=== PATIENT | male | born 1990 | race Caucasian/White ===

== ENCOUNTER 2020-05-13 12:50 | Emergency (ER) | payer MEDICAID ==
[~2020-05-13] VITALS: Ht 185 cm; Wt 64.0 kg
[~2020-05-13 12:50] MED LIST: CYCL10TA9 PO; MPR22T TOP; NAPR-243 PO; SULF1TAB38 PO
[2020-05-13 13:25] VITALS: BP 111/73
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
[2020-05-13] MEDS ORDERED: BSS 15 ML IR ONE (13:45)
[2020-05-13] MEDS ORDERED: FLUORESCEIN (FLUOR-I-STRIPS) 1 MG STRP OU ONE (13:45)
[2020-05-13] MEDS ORDERED: TETRACAINE 0.5% OPHTH SOLN 4 ML BTL (SINGLE DOSE ONLY) OP ONE (13:45)
[2020-05-13] MEDS ORDERED: ERYT1OIN6 OP (13:49)
[2020-05-13] MEDS ORDERED: HYDR-3870 PO (13:49)
--- NOTE | 2020-05-13 13:50 | ED EENT ---
History of Present Illness General Chief Complaint: Eye Problems Stated Complaint: SOMETHING IN R EYE Nursing Triage Note: c/o R eye pain after unloading scrap metal yesterday Source: patient Exam Limitations: no limitations History of Present Illness Date Seen by Provider: May 13, 2020 Time Seen by Provider: 13:46 Initial Comments Unloading scrap metal yesterday out of the back of his truck and got something in his right eye. He has been irrigating it at home he states. Timing/Duration: abrupt Severity: moderate Location: eye (R) Associated Symptoms: denies symptoms Allergies and Home Medications Allergies Coded Allergies: No Known Drug Allergies (Unverified , 12/01/13) Home Medications Cyclobenzaprine Hcl 10 Mg Tablet, 1 EACH PO Q8H PRN for SPASMS Prescribed by: CELESTINO CORRAL on 01/02/152244 Naproxen 500 Mg Tablet, 1 EACH PO TID PRN for PAIN FOR PAIN Prescribed by: CELESTINO CORRAL on 01/02/152244 Patient Home Medication List Home Medication List Reviewed: Yes Review of Systems Review of Systems Constitutional: see HPI Eyes: See HPI, Foreign Body Sensation Ears: No Symptoms Reported Nose: no symptoms reported Mouth: no symptoms reported Throat: no symptoms reported Respiratory: no symptoms reported Cardiovascular: no symptoms reported Musculoskeletal: no symptoms reported Past Vgomchw-Dyhqiy-Ygawrw Hx Patient Social History Alcohol Use: Denies Use Recreational Drug Use: No Smoking Status: Current Everyday Smoker Type Used: Cigarettes Recent Foreign Travel: No Contact w/Someone Who Travel: No Recent Infectious Disease Expo: No Immunizations Up To Date Tetanus Booster (TDap): Less than 5yrs Seasonal Allergies Seasonal Allergies: No Past Medical History Surgeries: Yes (EAR TUBES) Tonsillectomy Respiratory: No Cardiac: Yes Cardiomyopathy Neurological: No Gastrointestinal: No Musculoskeletal: No Endocrine: No Cancer: No Psychosocial: No Integumentary: No Blood Disorders: No Adverse Reaction/Blood Tranf: No Family Medical History No Pertinent Family Hx Physical Exam Vital Signs Vital Signs - First Documented 05/13/20 13:25 Temp 37.0 Pulse 67 Resp 18 B/P (MAP) 111/73 (86) Pulse Ox 100 Height, Weight, BMI Height: 6'1" Weight: 140lbs. oz. 63.376492up; 18.00 BMI Method:Stated General Appearance: WD/WN, no apparent distress Eyes: right eye other (conjunctival inflammation on the right, upon staining w ith fluorescein there is an area of dye uptake consistent with corneal abrasion about the 5:00 position near the limbus. No foreign body seen); bilateral eye PERRL, bilateral eye EOMI Neck: non-tender, full range of motion Respiratory: normal breath sounds, no respiratory distress, no accessory muscle use Neurologic/Psychiatric: alert, normal mood/affect, oriented x 3 Skin: normal color Progress/Results/Core Measures Results/Orders My Orders Orders - BETTY GRIFFITHS APRN Tetracaine 0.5% Ophth Zelda Sdv (Tetracai (05/13/20 13:45) Fluorescein Strips (Qcvje-N-Dsgxyz) (05/13/20 13:45) Balanced Salt Irrigation Soln (Bss Irrig (05/13/20 13:45) Medications Given in ED Current Medications Medications Dose Ordered Sig/Gretta Route Start Time Stop Time Status Last Admin Dose Admin Balanced Salt Solution 15 ml ONCE ONCE IR 05/13/20 13:45 05/13/20 13:46 05/13/20 13:43 15 ML Fluorescein Sodium 1 mg ONCE ONCE OU 05/13/20 13:45 05/13/20 13:46 05/13/20 13:43 1 MG Tetracaine HCl 1 OR 2 DROPS INTO AFFEC... ONCE ONCE OP 05/13/20 13:45 05/13/20 13:46 05/13/20 13:43 1 ML Vital Signs/I&O 05/13/20 13:25 Temp 37.0 Pulse 67 Resp 18 B/P (MAP) 111/73 (86) Pulse Ox 100 Blood Pressure Mean: 86 Departure Impression Primary Impression: Corneal abrasion Qualified Codes: S05.01XA - Injury of conjunctiva and corneal abrasion without foreign body, right eye, initial encounter Disposition: HOME, SELF-CARE Condition: Stable Departure-Patient Inst. Decision time for Depature: 13:47 Referrals: [facility] (PCP/Family) Primary Care Physician Patient Instructions: Corneal Abrasion Add. Discharge Instructions: In front of a mirror , pull down your lower eyelid and squirt about a half an inch of the antibiotic ointment just inside the lower eyelid 3 times a day for the next 3 days. Return to ER for any concerns. All discharge instructions reviewed with patient and/or family. Voiced understanding. Scripts Erythromycin Base (Erythromycin Opthalmic Ointment) 1 Gm Oint...g. 0 OP Q8H for 3 Days, #1 TUBE 1/2 inch Prov: BETTY GRIFFITHS APRN 05/13/20 BETTY GRIFFITHS APRN May 13, 2020 13:50
== END 2020-05-13 13:53 | disposition home or self-care (01) ==
LOC: EDUNIT# 12:50 → ER 12:52
DX: S05.01XA Injury of conjunctiva and corneal abrasion without foreign body, right eye, initial encounter (principal); F17.210 Nicotine dependence, cigarettes, uncomplicated; X58.XXXA Exposure to other specified factors, initial encounter
CPT/HCPCS: 99282

== ENCOUNTER 2021-03-29 20:47 | Emergency (ER) | payer SELFPAY ==
[~2021-03-29] VITALS: Ht 185 cm; Wt 72.0 kg
[~2021-03-29 20:47] MED LIST changes: +ERYT1OIN6 OP; +HYDR-3870 PO
[2021-03-29] MEDS ORDERED: morphine INJ 10 MG/ML 1ML (SYR OR VIAL) IVP STA (20:52)
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
[2021-03-29] MEDS ORDERED: TETANUS,DIPTH,PERTUSS P/F (BOOSTRIX) 0.5 ML VIAL IM ONE (21:00)
--- NOTE | 2021-03-29 21:30 | Diagnostic Imaging Report ---
EXAMINATION: Left shoulder 2 or more views. HISTORY: Pain after fall. COMPARISON: None available. FINDINGS: There is a displaced midshaft left clavicle fracture with comminution. Glenohumeral joint and acromioclavicular joint are normal. IMPRESSION: Displaced and comminuted left midshaft clavicle fracture. Dictated by: Dictated on workstation # [id number]
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
[2021-03-29] MEDS ORDERED: ACHD5005 PO (21:38)
[2021-03-29 21:50] VITALS: BP 137/87
== END 2021-03-29 21:51 | disposition home or self-care (01) ==
LOC: ER 20:48
DX: S42.022A Displaced fracture of shaft of left clavicle, initial encounter for closed fracture (principal); S01.91XA Laceration without foreign body of unspecified part of head, initial encounter; R40.2413 Glasgow coma scale score 13-15, at hospital admission; V19.9XXA Pedal cyclist (driver) (passenger) injured in unspecified traffic accident, initial encounter
CPT/HCPCS: 70450; 72125; 73030; 90715

== ENCOUNTER 2021-04-02 12:05 | Emergency (ER) | payer SELFPAY ==
[~2021-04-02] VITALS: Ht 188 cm; Wt 65.0 kg
[~2021-04-02 12:05] MED LIST changes: +ACHD5005 PO
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
[2021-04-02] MEDS ORDERED: BISACODYL 10 MG SUPP (DULCOLAX) PR ONE (13:30)
[2021-04-02] MEDS ORDERED: GLYCERIN ADULT SUPPOSITORY PR ONE (13:30)
[2021-04-02] MEDS ORDERED: NS IV 1000 ML 1,000 ML IV ONE (14:00)
[2021-04-02] MEDS ORDERED: fentaNYL INJ 100 MCG/2 ML AMP IVP STA (14:06)
[2021-04-02] MEDS ORDERED: HOLD METFORMIN - RECEIVED CONTRAST 20 ML VIAL IV SCH (14:30)
[2021-04-02] MEDS ORDERED: IOHEXOL 350 MG/ML 100 ML (OMNIPAQUE 350) VIAL IV ONE (14:30)
[2021-04-02] MEDS ORDERED: NS 100 ML (IVPB) BAG IV ONE (14:30)
[2021-04-02] MEDS ORDERED: CATHETER FLUSH 10 ML SYR IV PRN (14:30)
[2021-04-02 14:41] LABS: BASOPHILS # (AUTO) 0.1 10^3/uL (0.0-0.1); BASOPHILS % (AUTO) 1 % (0-10); EOSINOPHILS # (AUTO) 0.2 10^3/uL (0.0-0.3); EOSINOPHILS % (AUTO) 2 % (0-10); HEMATOCRIT 48 % (40-54); HEMOGLOBIN 15.9 g/dL (13.3-17.7); LYMPHOCYTES # (AUTO) 1.8 10^3/uL (1.0-4.0); LYMPHOCYTES % (AUTO) 19 % (12-44); MEAN CORPUSCULAR HEMOGLOBIN 31 pg (25-34); MEAN CORPUSCULAR HGB CONC 33 g/dL (32-36); MEAN CORPUSCULAR VOLUME 92 fL (80-99); MEAN PLATELET VOLUME 8.9 fL (9.0-12.2); MONOCYTES # (AUTO) 0.8 10^3/uL (0.0-1.0); MONOCYTES % (AUTO) 8 % (0-12); NEUTROPHILS # (AUTO) 6.9 10^3/uL (1.8-7.8); NEUTROPHILS % (AUTO) 71 % (42-75); PLATELET COUNT 274 10^3/uL (130-400); WHITE BLOOD COUNT 9.8 10^3/uL (4.3-11.0)
[2021-04-02 14:56] LABS: ALBUMIN 3.7 GM/DL (3.2-4.5); CHLORIDE 105 MMOL/L (98-107); SODIUM 141 MMOL/L (135-145)
[2021-04-02 14:57] LABS: CALCIUM 8.9 MG/DL (8.5-10.1)
[2021-04-02 14:58] LABS: GLUCOSE 88 MG/DL (70-105); TOTAL PROTEIN 6.4 GM/DL (6.4-8.2)
[2021-04-02 14:59] LABS: CARBON DIOXIDE 25 MMOL/L (21-32)
[2021-04-02 15:00] LABS: BILIRUBIN,TOTAL 0.4 MG/DL (0.1-1.0)
[2021-04-02 15:01] LABS: ALKALINE PHOSPHATASE 83 U/L (40-136)
[2021-04-02 15:02] LABS: CREATININE SERUM 0.79 MG/DL (0.60-1.30); GFR ESTIMATED > 60
[2021-04-02 15:03] LABS: BUN/CREATININE RATIO 11
[2021-04-02 15:05] LABS: ALANINE AMINOTRANSFERASE 14 U/L (0-55)
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
[2021-04-02 16:05] VITALS: BP 144/102
== END 2021-04-02 16:05 | disposition home or self-care (01) ==
LOC: EDUNIT# 12:05 → ER 12:07
DX: S40.212A Abrasion of left shoulder, initial encounter (principal); R10.30 Lower abdominal pain, unspecified; K59.00 Constipation, unspecified; F17.210 Nicotine dependence, cigarettes, uncomplicated; V29.9XXA Motorcycle rider (driver) (passenger) injured in unspecified traffic accident, initial encounter
CPT/HCPCS: 36415; 74177; 80053; 85025

== ENCOUNTER 2022-04-12 21:03 | Observation (INO) | payer SELFPAY ==
[~2022-04-12] VITALS: Ht 185.5 cm; Wt 63.6 kg
[2022-04-12] MEDS ORDERED: NS IV 1000 ML 1,000 ML ONE (22:02)
--- NOTE | 2022-04-12 22:09 | ED Psychosocial ---
General Chief Complaint: Psych/Social Disorder Stated Complaint: FALLS/SYNCOPE/VISION ISSUES History of Present Illness Date Seen by Provider: Apr 12, 2022 Time Seen by Provider: 22:00 Initial Comments Patient is a 31-year-old male who presents to the emergency department today, brought here by his mother for chief complaint of multiple falls, agitated, jittery, responding to internal stimuli. He states that he has been walking all day. He is incoherent as far as details of his day. Tends to ramble. Appears to be intoxicated on methamphetamine. Glassy eyed. Denies pain currently. Is not nauseous, is not short of breath. Difficult to get a history from secondary to his clinical condition. States that he is not on any daily medications. States that the last time he ate was breakfast, "biscuits and gravy". Tells me that he has not done any drugs today. Extremely difficult to get HPI, review of systems, past medical family or social history secondary to his apparent intoxication. Noted to be tachycardic in the 120s. Timing/Duration: other (unknown) Severity: severe Associated Symptoms: anxiety, impaired concentration Allergies and Home Medications Allergies Coded Allergies: No Known Drug Allergies (Unverified , 12/01/13) Patient Home Medication List Home Medication List Reviewed: Yes No Active Prescriptions or Reported Meds Review of Systems Constitutional: see HPI EENTM: no symptoms reported Respiratory: no symptoms reported Cardiovascular: no symptoms reported Gastrointestinal: no symptoms reported Genitourinary: no symptoms reported Musculoskeletal: no symptoms reported Skin: no symptoms reported Psychiatric/Neurological: Anxiety, Paresthesia All Other Systems Reviewed Negative Unless Noted: Yes Past Ddivnbd-Rbncei-Kictzs Hx Immunizations Up To Date Tetanus Booster (TDap): Less than 5yrs Seasonal Allergies Seasonal Allergies: No Past Medical History Surgeries: Yes (EAR TUBES) Tonsillectomy Respiratory: No Cardiac: Yes Cardiomyopathy Neurological: No Gastrointestinal: No Musculoskeletal: Yes Fractures Endocrine: No Cancer: No Psychosocial: No Integumentary: No Blood Disorders: No Adverse Reaction/Blood Tranf: No Family Medical History No Pertinent Family Hx Physical Exam Vital Signs - First Documented 04/12/22 04/14/22 21:40 13:37 Temp 36.1 Pulse 95 Resp 20 B/P (MAP) 102/75 (84) Pulse Ox 100 O2 Delivery Room Air O2 Flow Rate 0.00 Capillary Refill : Height, Weight, BMI Height: 6'1" Weight: 140lbs. oz. 63.344702vb; 18.00 BMI Method:Stated General Appearance: no apparent distress, thin HEENT: PERRL/EOMI, other (dry oral mucosa) Neck: full range of motion Respiratory: lungs clear, normal breath sounds, no respiratory distress, no accessory muscle use Cardiovascular: regular rate, rhythm (120's) Gastrointestinal: normal bowel sounds, non tender, soft Extremities: normal range of motion, normal inspection Neurologic/Psychiatric: alert Appearance/Memory: appropriate appearance, denies illness, impaired insight Behavior/Eye Contact: avoids eye contact, increased rate of speech Thoughts/Hallucinations: flight of ideas, paranoid, other (agitated; responding to external stimuli) Skin: normal color, warm/dry, other (scattered abrasions) Progress/Results/Core Measures Results/Orders Lab Results Laboratory Tests Test 04/14/22 05:34 Range/Units White Blood Count 7.1 4.3-11.0 10^3/uL Red Blood Count 4.59 4.30-5.52 10^6/uL Hemoglobin 14.1 13.3-17.7 g/dL Hematocrit 42 40-54 % Mean Corpuscular Volume 91 80-99 fL Mean Corpuscular Hemoglobin 31 25-34 pg Mean Corpuscular Hemoglobin Concent 34 32-36 g/dL Red Cell Distribution Width 13.0 10.0-14.5 % Platelet Count 188 130-400 10^3/uL Mean Platelet Volume 10.4 9.0-12.2 fL Immature Granulocyte % (Auto) 0 % Neutrophils (%) (Auto) 38 L 42-75 % Lymphocytes (%) (Auto) 48 H 12-44 % Monocytes (%) (Auto) 7 0-12 % Eosinophils (%) (Auto) 6 0-10 % Basophils (%) (Auto) 1 0-10 % Neutrophils # (Auto) 2.7 1.8-7.8 10^3/uL Lymphocytes # (Auto) 3.4 1.0-4.0 10^3/uL Monocytes # (Auto) 0.5 0.0-1.0 10^3/uL Eosinophils # (Auto) 0.4 H 0.0-0.3 10^3/uL Basophils # (Auto) 0.1 0.0-0.1 10^3/uL Immature Granulocyte # (Auto) 0.0 0.0-0.1 10^3/uL Sodium Level 140 135-145 MMOL/L Potassium Level 4.1 3.6-5.0 MMOL/L Chloride Level 107 98-107 MMOL/L Carbon Dioxide Level 25 21-32 MMOL/L Anion Gap 8 5-14 MMOL/L Blood Urea Nitrogen 25 H 7-18 MG/DL Creatinine 1.07 0.60-1.30 MG/DL Estimat Glomerular Filtration Rate 96 BUN/Creatinine Ratio 23 Glucose Level 93 70-105 MG/DL Calcium Level 8.4 L 8.5-10.1 MG/DL Corrected Calcium 9.0 8.5-10.1 MG/DL Total Bilirubin 0.4 0.1-1.0 MG/DL Aspartate Amino Transf (AST/SGOT) 20 5-34 U/L Alanine Aminotransferase (ALT/SGPT) 28 0-55 U/L Alkaline Phosphatase 75 40-136 U/L Total Protein 5.6 L 6.4-8.2 GM/DL Albumin 3.3 3.2-4.5 GM/DL My Orders Medications Given in ED Vital Signs/I&O Progress Progress Note #1: Time: 01:47 Progress Note Patient noted to be extremely dehydrated, very dry oral mucosa. acute renal failure likely secondary to his dehydration. Fluid resuscitated with 3 L of normal saline. Case is discussed with Dr. Watts at 0104. She recommends continuing hydration, repeat labs at 4:30 AM and she will reassess. She is not willing to accept him for admission at this time. He is resting quietly after having had some Zyprexa p.o. Fluids currently running normal saline 150 cc/h. He is positive for methamphetamine on his urine drug screen. He technically has mild rhabdo with an increased total CK as well as blood in his urine. Dispo pending reevaluation at 4:30 AM. Progress Note #2: Time: 05:[address] Watts accepting for obs admission to Medical floor. que'd orders per her. Departure Communication (Admissions) Time/Spoke to Admitting Phy: 05:55 Dr Watts Impression Primary Impression: Renal failure, acute Qualified Codes: N17.9 - Acute kidney failure, unspecified Additional Impressions: Dehydration, severe Rhabdomyolysis Qualified Codes: M62.82 - Rhabdomyolysis Methamphetamine intoxication Disposition: ADMITTED INPATIENT Condition: Stable Admissions Decision to Admit Reason: Admit from ER (General) Decision to Admit/Date: Apr 13, 2022 Time/Decision to Admit Time: 05:55 Departure-Patient Inst. Referrals: [facility] (PCP/Family) Primary Care Physician Scripts No Active Prescriptions or Reported Meds MEI ZALDIVAR MD Apr 12, 2022 22:09
[2022-04-12] MEDS ORDERED: OLANZapine 5 MG ODT (ZyPREXA ZYDIS) PO ONE (22:15)
[2022-04-12] MEDS ORDERED: NS IV 1000 ML 1,000 ML IV SCH (22:15)
[2022-04-12 22:20] LABS: ALBUMIN 5.6 GM/DL (3.2-4.5); CHLORIDE 102 MMOL/L (98-107); SODIUM 144 MMOL/L (135-145)
[2022-04-12 22:21] LABS: CALCIUM 11.1 MG/DL (8.5-10.1)
[2022-04-12 22:22] LABS: GLUCOSE 113 MG/DL (70-105)
[2022-04-12 22:23] LABS: TOTAL PROTEIN 9.4 GM/DL (6.4-8.2)
[2022-04-12 22:24] LABS: BILIRUBIN,TOTAL 1.4 MG/DL (0.1-1.0); CARBON DIOXIDE 22 MMOL/L (21-32)
[2022-04-12 22:26] LABS: ALKALINE PHOSPHATASE 109 U/L (40-136); CREATININE SERUM 3.87 MG/DL (0.60-1.30); GFR ESTIMATED 20
[2022-04-12 22:27] LABS: BASOPHILS # (AUTO) 0.1 10^3/uL (0.0-0.1); BASOPHILS % (AUTO) 0 % (0-10); BUN/CREATININE RATIO 9; EOSINOPHILS % (AUTO) 0 % (0-10); HEMATOCRIT 52 % (40-54); LYMPHOCYTES % (AUTO) 10 % (12-44); MEAN CORPUSCULAR HEMOGLOBIN 30 pg (25-34); MEAN CORPUSCULAR HGB CONC 35 g/dL (32-36); MEAN CORPUSCULAR VOLUME 87 fL (80-99); MEAN PLATELET VOLUME 9.5 fL (9.0-12.2); MONOCYTES # (AUTO) 1.6 10^3/uL (0.0-1.0); MONOCYTES % (AUTO) 8 % (0-12); NEUTROPHILS # (AUTO) 16.6 10^3/uL (1.8-7.8); NEUTROPHILS % (AUTO) 81 % (42-75); PLATELET COUNT 313 10^3/uL (130-400); WHITE BLOOD COUNT 20.4 10^3/uL (4.3-11.0)
[2022-04-12 22:29] LABS: ALANINE AMINOTRANSFERASE 67 U/L (0-55); CREATINE KINASE 385 U/L (30-200)
[2022-04-12 23:07] LABS: LYMPHOCYTES % (MANUAL) 12 %; MONOCYTES % (MANUAL) 5 %; NEUTROPHILS % (MANUAL) 83 %
[2022-04-13] MEDS: NS IV 1000 ML 1,000 ML IV SCH ×7 (00:10→22:36)
[2022-04-13 01:20] LABS: BILIRUBIN,URINE NEGATIVE (NEGATIVE); CLARITY,URINE SL CLOUDY; COLOR,URINE YELLOW; GLUCOSE, URINE (UA) NEGATIVE (NEGATIVE); KETONES,URINE NEGATIVE (NEGATIVE); LEUKOCYTE ESTERASE ,URINE NEGATIVE (NEGATIVE); NITRITE,URINE NEGATIVE (NEGATIVE); PH,URINE 5.5 (5-9); PROTEIN,URINE 2+ (NEGATIVE)
[2022-04-13 01:30] LABS: BACTERIA,URINE NEGATIVE /HPF; SQUAMOUS EPITHELIAL CELL,UR 0-2 /HPF
[2022-04-13 01:41] LABS: AMPHETAMINE SCREEN, URINE POSITIVE (NEGATIVE); BARBITURATE SCREEN URINE NEGATIVE (NEGATIVE); BENZODIAZEPINES SCREEN URINE NEGATIVE (NEGATIVE); CANNABINOID SCREEN, URINE NEGATIVE (NEGATIVE); COCAINE SCREEN URINE NEGATIVE (NEGATIVE); METHADONE STAT NEGATIVE (NEGATIVE); OPIATE SCREEN URINE NEGATIVE (NEGATIVE); OXYCODONE STAT NEGATIVE (NEGATIVE); PROPOXYPHENE STAT NEGATIVE (NEGATIVE); TRICYCLIC ANTIDEPRESSANTS SCRE NEGATIVE (NEGATIVE)
[2022-04-13 04:45] LABS: POTASSIUM 4.4 MMOL/L (3.6-5.0)
[2022-04-13 04:46] LABS: CALCIUM 8.4 MG/DL (8.5-10.1)
[2022-04-13 04:50] LABS: CREATININE SERUM 2.08 MG/DL (0.60-1.30)
[2022-04-13] MEDS ORDERED: ANTACID SUSP 30 ML UDC (MYLANTA) PO PRN (08:45)
[2022-04-13] MEDS ORDERED: CALCIUM CARBONATE 500 MG (TUMS) TAB.CHEW PO PRN (08:45)
[2022-04-13] MEDS ORDERED: polyethylene glycoL POWDER 17 GM (MIRALAX) PACK PO PRN (08:45)
[2022-04-13] MEDS ORDERED: MELATONIN 3 MG TABLET PO PRN (08:45)
[2022-04-13] MEDS ORDERED: MILK OF MAGNESIA 400 MG/5 ML 30 ML UDC PO PRN (08:45)
[2022-04-13] MEDS ORDERED: ONDANSETRON 4 MG (ZOFRAN) ORAL DISSOLVE TAB PO PRN (08:45)
[2022-04-13] MEDS ORDERED: OLANZapine 5 MG ODT (ZyPREXA ZYDIS) PO PRN (08:45)
[2022-04-13] MEDS ORDERED: BISACODYL 10 MG SUPP (DULCOLAX) PR PRN (08:45)
[2022-04-13] MEDS ORDERED: ONDANSETRON 4 MG/2 ML (SDV) Z0FRAN IV PRN (08:45)
[2022-04-13] MEDS ORDERED: diphenhydrAMINE 25 MG TAB (BENADRYL) PO PRN (08:45)
[2022-04-13] MEDS ORDERED: LACTULOSE SYRUP 10GM/15ML (ENULOSE) 30ML UDC PO PRN (08:45)
[2022-04-13] MEDS ORDERED: HYDROmorphone 2 MG/ML VIAL (DILAUDID) IVP PRN (08:45)
[2022-04-13] MEDS ORDERED: diphenhydrAMINE 50 MG/ML INJ (BENADRYL) IVP PRN (08:45)
[2022-04-13] MEDS ORDERED: ACETAMINOPHEN 325 MG TABLET PO PRN (08:45)
[2022-04-13 09:03] VITALS: BP 110/71
[2022-04-13] MEDS: SENNOSIDES 8.6 MG (SENOKOT) TAB PO SCH ×2 (09:18→20:26)
[2022-04-13] MEDS: DOCUSATE SODIUM 100 MG (COLACE) CAP PO SCH ×2 (09:18→20:26)
[2022-04-13 09:22] LABS: BASOPHILS # (AUTO) 0.1 10^3/uL (0.0-0.1); BASOPHILS % (AUTO) 1 % (0-10); EOSINOPHILS # (AUTO) 0.3 10^3/uL (0.0-0.3); EOSINOPHILS % (AUTO) 2 % (0-10); HEMATOCRIT 42 % (40-54); HEMOGLOBIN 13.8 g/dL (13.3-17.7); LYMPHOCYTES # (AUTO) 3.9 10^3/uL (1.0-4.0); LYMPHOCYTES % (AUTO) 30 % (12-44); MEAN CORPUSCULAR HEMOGLOBIN 30 pg (25-34); MEAN CORPUSCULAR HGB CONC 33 g/dL (32-36); MEAN CORPUSCULAR VOLUME 91 fL (80-99); MEAN PLATELET VOLUME 9.4 fL (9.0-12.2); MONOCYTES # (AUTO) 1.1 10^3/uL (0.0-1.0); MONOCYTES % (AUTO) 8 % (0-12); NEUTROPHILS # (AUTO) 7.5 10^3/uL (1.8-7.8); NEUTROPHILS % (AUTO) 58 % (42-75); PLATELET COUNT 192 10^3/uL (130-400); WHITE BLOOD COUNT 12.8 10^3/uL (4.3-11.0)
[2022-04-13 09:42] LABS: ALBUMIN 3.7 GM/DL (3.2-4.5); BILIRUBIN,TOTAL 1.1 MG/DL (0.1-1.0); CALCIUM 8.5 MG/DL (8.5-10.1); CREATININE SERUM 1.67 MG/DL (0.60-1.30); POTASSIUM 4.2 MMOL/L (3.6-5.0)
[2022-04-13 11:22] VITALS: BP 112/66
[2022-04-13] MEDS ORDERED: LORazepam 0.5 MG (ATIVAN) TABLET PO PRN (12:15)
[2022-04-13 12:19] VITALS: BP 112/66
[2022-04-13 16:00] VITALS: BP 118/58
[2022-04-13 20:49] VITALS: BP 107/62
[2022-04-14] VITALS: BP 110/69
[2022-04-14 03:34] VITALS: BP 109/61
[2022-04-14] MEDS: NS IV 1000 ML 1,000 ML IV SCH ×2 (05:22→07:43)
[2022-04-14 06:33] LABS: BASOPHILS # (AUTO) 0.1 10^3/uL (0.0-0.1); BASOPHILS % (AUTO) 1 % (0-10); EOSINOPHILS # (AUTO) 0.4 10^3/uL (0.0-0.3); EOSINOPHILS % (AUTO) 6 % (0-10); HEMATOCRIT 42 % (40-54); HEMOGLOBIN 14.1 g/dL (13.3-17.7); LYMPHOCYTES # (AUTO) 3.4 10^3/uL (1.0-4.0); LYMPHOCYTES % (AUTO) 48 % (12-44); MEAN CORPUSCULAR HEMOGLOBIN 31 pg (25-34); MEAN CORPUSCULAR HGB CONC 34 g/dL (32-36); MEAN CORPUSCULAR VOLUME 91 fL (80-99); MEAN PLATELET VOLUME 10.4 fL (9.0-12.2); MONOCYTES # (AUTO) 0.5 10^3/uL (0.0-1.0); MONOCYTES % (AUTO) 7 % (0-12); NEUTROPHILS # (AUTO) 2.7 10^3/uL (1.8-7.8); NEUTROPHILS % (AUTO) 38 % (42-75); PLATELET COUNT 188 10^3/uL (130-400); WHITE BLOOD COUNT 7.1 10^3/uL (4.3-11.0)
[2022-04-14 06:50] LABS: ALBUMIN 3.3 GM/DL (3.2-4.5); POTASSIUM 4.1 MMOL/L (3.6-5.0)
[2022-04-14 06:51] LABS: CALCIUM 8.4 MG/DL (8.5-10.1)
[2022-04-14 06:53] LABS: TOTAL PROTEIN 5.6 GM/DL (6.4-8.2)
[2022-04-14 06:54] LABS: BILIRUBIN,TOTAL 0.4 MG/DL (0.1-1.0)
[2022-04-14 06:56] LABS: CREATININE SERUM 1.07 MG/DL (0.60-1.30)
--- NOTE | 2022-04-14 07:29 | History & Physical-Hospitalist ---
History of Present Illness HPI/Chief Complaint Late entry, inadvertently missed creating note when I assessed the patient at 1100 04/13/22 Chief complaint: Acute kidney failure History present illness: This is a 31-year-old male history of meth use who works in [employer] who presented to the ER with altered mental status and weakness found to have acute renal failure and profound dehydration requiring aggressive IV fluids and monitoring renal function. He did required in and out cath due to urinary retention but now he is voiding much better. Source: patient Exam Limitations: no limitations Date Seen 04/13/22 Time Seen by a Provider: 11:30 Attending Physician [place] PCP Admitting Physician: Yoselin Watts DO Attending Physician: Yoselin Watts DO Referring Physician Date of Admission Apr 13, 2022 at 05:55 Home Medications & Allergies Home Medications Reviewed patient Home Medication Reconciliation performed by pharmacy medication reconciliations solids control technician and/or nursing. Patients Allergies have been reviewed. Allergies Allergies Coded Allergies No Known Drug Allergies (Unverified12/01/13) Past Nzdfeeo-Izlhkz-Whrewj Hx Patient Social History Marrital Status: single Employed/Student: unemployed Tobacco Use?: Yes Tobacco type used: Cigarettes Smoking Status: Current Everyday Smoker Substance use?: Yes Substance type: Amphetamines, Caffeine, Methamphetamine, Nicotine, Opiates/Opioids, Marijuana Substance frequency: Daily Alcohol Use?: Yes Alcohol type: Beer Alcohol Frequency: Several times a month Pt feels they are or have been: No Immunizations Up To Date Tetanus Booster (TDap): Unknown Seasonal Allergies Seasonal Allergies: No Current Status Advance Directives: No Communicates: Verbally Primary Language: Sudanese Preferred Spoken Language: Sudanese Is interpretation needed?: No Implanted or Applied Medical D: None Past Medical History Surgeries: Tonsillectomy Cardiomyopathy Fractures Blood Disorders: No Adverse Reaction/Blood Tranf: No Family Medical History No Pertinent Family Hx Review of Systems Constitutional: see HPI, dizziness, malaise, weakness Physical Exam Physical Exam Vital Signs Vital Signs - First Documented 04/12/22 04/14/22 21:40 13:37 Temp 36.1 Pulse 95 Resp 20 B/P (MAP) 102/75 (84) Pulse Ox 100 O2 Delivery Room Air O2 Flow Rate 0.00 Capillary Refill : Less Than 3 Seconds Height, Weight, BMI Height: 6'1" Weight: 140lbs. oz. 63.389316xm; 18.48 BMI Method:Stated General Appearance: No Apparent Distress, Thin Eyes: Right Eye Normal Inspection, Right Eye PERRL HEENT: PERRL/EOMI, Normal ENT Inspection, Pharynx Normal, Moist Mucous Membranes Neck: Full Range of Motion, Normal Inspection, Non Tender Respiratory: Chest Non Tender, Lungs Clear, Normal Breath Sounds, No Accessory Muscle Use, No Respiratory Distress Cardiovascular: Regular Rate, Rhythm, No Edema, No Gallop, No JVD, No Murmur, Normal Peripheral Pulses Gastrointestinal: Normal Bowel Sounds, No Organomegaly, No Pulsatile Mass, Non Tender, Soft Back: Normal Inspection, No CVA Tenderness, No Vertebral Tenderness Extremity: Normal Capillary Refill, Normal Inspection, Normal Range of Motion, Non Tender, No Calf Tenderness, No Pedal Edema Neurologic/Psychiatric: Alert, Oriented x3, No Motor/Sensory Deficits, Normal Mood/Affect Skin: Normal Color, Warm/Dry Lymphatic: No Adenopathy Results Results/Procedures Labs Laboratory Tests 04/12/22 21:50 04/13/22 04:30 04/13/22 09:18 04/14/22 05:34 Patient resulted labs reviewed. Assessment/Plan Admission Diagnosis Assessment: ALEXA Dehydration Heat exposure Meth use Plan: IVF Monitor closely Admission Status: Observation Diagnosis/Problems Diagnosis/Problems (1) Renal failure, acute Status: Acute Qualifiers: Acute renal failure type: unspecified Qualified Codes: N17.9 - Acute kidney failure, unspecified (2) Dehydration, severe Status: Acute (3) Rhabdomyolysis Status: Acute Qualifiers: Rhabdomyolysis type: non-traumatic Qualified Codes: M62.82 - Rhabdomyolysis (4) Methamphetamine intoxication Status: Acute YOSELIN WATTS DO Apr 14, 2022 07:29
--- NOTE | 2022-04-14 07:29 | Progress Note - Hospitalist ---
Subjective HPI/CC On Admission Date Seen by Provider: Apr 14, 2022 Time Seen by Provider: 11:00 Objective Exam Vital Signs Vital Signs Date Time Temp Pulse Resp B/P (MAP) Pulse Ox O2 Delivery O2 Flow Rate FiO2 04/14/22 11:33 37.2 82 18 107/56 (73) 98 Room Air Capillary Refill : Less Than 3 Seconds Results/Procedures Lab Laboratory Tests 04/14/22 05:34 Patient resulted labs reviewed. TALAT HOOD DO Apr 14, 2022 07:29
[2022-04-14 08:00] VITALS: BP 124/65
[2022-04-14] MEDS: DOCUSATE SODIUM 100 MG (COLACE) CAP PO SCH (09:00)
[2022-04-14] MEDS: SENNOSIDES 8.6 MG (SENOKOT) TAB PO SCH (09:00)
[2022-04-14 11:33] VITALS: BP 107/56
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
[2022-04-14 13:22] VITALS: BP 127/56
[2022-04-14 13:37] VITALS: BP 127/56
== END 2022-04-14 11:46 | disposition home or self-care (01) ==
LOC: EDUNIT# 21:03 → ER 21:05 → 4TH 21:06 → UNDOADMOB 04-13 05:55 → UNDODISOB 04-14 13:36
PROVIDERS: ADMIT Internal Medicine; ATTEND Internal Medicine
DX: N17.9 Acute kidney failure, unspecified (principal); E86.0 Dehydration; M62.82 Rhabdomyolysis; F15.129 Other stimulant abuse with intoxication, unspecified; F17.210 Nicotine dependence, cigarettes, uncomplicated
CPT/HCPCS: 80048; 80053 ×3; 80306; 81000; 82550 ×2; 85007; 85025 ×2; 85027; 96361; 96372 ×2; 99284; G0378; 36415; 96360

== ENCOUNTER 2023-06-24 23:55 | Emergency (ER) | payer SELFPAY ==
[~2023-06-24] VITALS: Ht 187.9 cm; Wt 81.6 kg
[2023-06-25] MEDS ORDERED: LACTATED RINGERS 1,000 ML 1,000 ML IV ONE (00:15)
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
[2023-06-25 00:43] LABS: BASOPHILS % (AUTO) 0 % (0-10); EOSINOPHILS % (AUTO) 0 % (0-10); HEMATOCRIT 44 % (40-54); HEMOGLOBIN 15.1 g/dL (13.3-17.7); LYMPHOCYTES % (AUTO) 16 % (12-44); MEAN CORPUSCULAR HEMOGLOBIN 31 pg (25-34); MEAN CORPUSCULAR HGB CONC 35 g/dL (32-36); MEAN CORPUSCULAR VOLUME 89 fL (80-99); MEAN PLATELET VOLUME 9.6 fL (9.0-12.2); MONOCYTES # (AUTO) 1.1 10^3/uL (0.0-1.0); MONOCYTES % (AUTO) 9 % (0-12); NEUTROPHILS # (AUTO) 9.5 10^3/uL (1.8-7.8); NEUTROPHILS % (AUTO) 75 % (42-75); PLATELET COUNT 266 10^3/uL (130-400); WHITE BLOOD COUNT 12.7 10^3/uL (4.3-11.0)
[2023-06-25 01:08] LABS: ALANINE AMINOTRANSFERASE 12 U/L (0-55); ALBUMIN 4.3 GM/DL (3.2-4.5); ALKALINE PHOSPHATASE 99 U/L (40-136); AMYLASE 44 U/L (25-125); BILIRUBIN,TOTAL 0.6 MG/DL (0.1-1.0); BUN/CREATININE RATIO 14; CALCIUM 9.1 MG/DL (8.5-10.1); CARBON DIOXIDE 21 MMOL/L (21-32); CHLORIDE 108 MMOL/L (98-107); CREATININE SERUM 1.43 MG/DL (0.60-1.30); GFR ESTIMATED 67; GLUCOSE 140 MG/DL (70-105); INR 1.2 (0.8-1.4); LIPASE 14 U/L (8-78); POTASSIUM 3.8 MMOL/L (3.6-5.0); PROTHROMBIN TIME PATIENT 15.3 SEC (12.2-14.7); SODIUM 140 MMOL/L (135-145); TOTAL PROTEIN 6.7 GM/DL (6.4-8.2)
[2023-06-25] MEDS ORDERED: NS 100 ML (IVPB) BAG IV ONE (02:15)
[2023-06-25] MEDS ORDERED: IOHEXOL 350 MG/ML 100 ML (OMNIPAQUE 350) VIAL IV ONE (02:15)
[2023-06-25] MEDS ORDERED: HOLD METFORMIN - RECEIVED CONTRAST 20 ML VIAL IV SCH (02:15)
[2023-06-25] MEDS ORDERED: KETOROLAC INJ 30 MG/ML VIAL IVP ONE (02:30)
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
[2023-06-25] MEDS ORDERED: CYCL10TA25 PO (03:52)
[2023-06-25] MEDS ORDERED: NAPR500T8 PO (03:52)
[2023-06-25] MEDS ORDERED: RX-NAPROXEN (NAPROSYN) 250 MG TAB PPK#4 PO STA (03:52)
[2023-06-25] MEDS ORDERED: RX-CYCLOBENZAPRINE 10 MG (FLEXERIL) TAB PPK#3 PO STA (03:52)
[2023-06-25 04:24] VITALS: BP 124/70
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
== END 2023-06-25 04:24 | disposition home or self-care (01) ==
LOC: EDUNIT# 23:55 → ER 23:58
DX: S70.02XA Contusion of left hip, initial encounter (principal); S70.12XA Contusion of left thigh, initial encounter; S50.02XA Contusion of left elbow, initial encounter; F17.210 Nicotine dependence, cigarettes, uncomplicated; Z28.311 Partially vaccinated for COVID-19; V18.4XXA Pedal cycle driver injured in noncollision transport accident in traffic accident, initial encounter; Y92.410 Unspecified street and highway as the place of occurrence of the external cause
CPT/HCPCS: 70450; 71045; 71260; 72125; 72128; 72131; 73080; 73502; 73552; 74177; 80053; 82150; 83690; 85025; 85610; 85730; 93041; 99284; G0480; 36415; 80320